=== PATIENT | male | born 1960 | race Two or more races ===

== ENCOUNTER 2018-04-02 17:17 | Emergency (ER) | payer OTHER, MEDICAID ==
[~2018-04-02] VITALS: Ht 154.9 cm; Wt 81.6 kg
[~2018-04-02 17:17] MED LIST: DIVA250T61 PO; PHEN100C70 PO
[2018-04-02 18:08] LABS: Hematocrit 44.2 % (41.0-53.0); Mean Corpuscular Hemoglobin 31.7 pg (28.0-32.0); Mean Corpuscular Hgb Conc. 33.9 g/dL (32.0-36.0); Mean Corpuscular Volume 93.7 fL (80.0-100.0); Platelet Count (auto) 233 10^3/uL (140-450); Red Blood Cells 4.72 10^6/uL (4.5-5.90); Red Cell Distribution Width 13.7 % (11.8-14.3); White Blood Cell 8.3 10^3/uL (4.4-10.8)
[2018-04-02 18:11] LABS: Band Neutrophils % (manual) 0; Eosinophils % (manual) 0 (0-7)
[2018-04-02 18:12] LABS: Basophils % (manual) 0 (0.0-2.0); Blast Cells 0; Metamyelocytes % 0; Myelocytes % 0; Promyelocytes % 0; Reactive Lymphocytes 0
[2018-04-02 18:22] LABS: Alanine Aminotransferase 43 U/L (16-61); Albumin 2.7 g/dL (3.4-5.0); Anion Gap 8 (5-15); Aspartate Aminotransferase 31 U/L (15-37); BUN/Creatinine Ratio 18.3; Blood Alcohol < 3.0 mg/dL (0-5); Blood Urea Nitrogen 11 mg/dL (7-18); Calcium 8.2 mg/dL (8.5-10.1); Carbon Dioxide 32 mmol/L (21-32); Chloride 96 mmol/L (98-107); GFR African American 179 mL/min; GFR Non-African American 148 mL/min; Glucose 105 mg/dL (74-106); Potassium 3.6 mmol/L (3.5-5.1); Sodium 136 mmol/L (136-145)
[2018-04-02 18:26] LABS: Alkaline Phosphatase 71 U/L (45-117); Bilirubin, Total 0.4 mg/dL (0.2-1.0); Total Protein 6.8 g/dL (6.4-8.2)
[2018-04-02] MEDS ORDERED: DEXTROSE (50%) 50ML SYRG IV ONE (18:45)
[2018-04-02 18:47] LABS: Urine Bacteria NONE SEEN /hpf (None Seen); Urine Blood Negative /uL (Negative); Urine Specific Gravity 1.008 (1.001-1.035); Urine WBC <1 /hpf (0 - 3)
[2018-04-02 18:50] LABS: Lymphocytes % (manual) 18 (10.0-50.0); Monocytes % (manual) 13 (0-12)
[2018-04-02 21:22] VITALS: BP 133/65
== END 2018-04-02 21:57 | disposition home or self-care (01) ==
LOC: EDBD 17:17 → ER 17:19
DX: I62.00 Nontraumatic subdural hemorrhage, unspecified (principal); G40.909 Epilepsy, unspecified, not intractable, without status epilepticus; R11.10 Vomiting, unspecified
CPT/HCPCS: 36415; 70450; 71045; 80053; 80320; 81001; 82962; 84484; 85007; 85027; 93005; 99285; J7042